=== PATIENT | male | born 1965 | race Caucasian/White ===

== ENCOUNTER 2016-07-01 18:59 | Inpatient (IN) ==
[2016-07-01] MEDS ORDERED: CORDARONE IV ONE (19:00)
[2016-07-01] MEDS ORDERED: CORDARONE 360 MG/D5W 200 ML IV ONE (19:01)
--- NOTE | 2016-07-01 19:04 | PROVIDER DOCUMENTATION ---
HPI-Cardiac General - General Stated Complaint: DEFIB FIRING Time Seen by Provider: 07/01/16 18:59 Source: patient, EMS Allergies/Adverse Reactions: Patient Allergies Allergy/AdvReac Type Severity Reaction Status Date / Time No Known Allergies Allergy Verified 07/01/16 19:33 Home Medications: Clopidogrel Bisulfate [Plavix] 75 mg PO DAILY 01/09/14 Digoxin 0.25 mg PO DAILY 01/09/14 Duloxetine [Cymbalta] 60 mg PO DAILY 01/09/14 Furosemide [Lasix] 40 mg PO DAILY 01/09/14 Lansoprazole [Prevacid] 30 mg PO DAILY 01/09/14 Lisinopril 5 mg PO DAILY 01/09/14 Metoprolol Succinate E.r. [Toprol Xl] 50 mg PO DAILY 01/09/14 Potassium Chloride [Klor-Con M20] 20 meq PO DAILY 01/09/14 Ranolazine [Ranexa] 1,000 mg PO DAILY 01/09/14 Rosuvastatin Calcium [Crestor] 40 mg PO DAILY 01/09/14 Spironolactone 25 mg PO DAILY 01/09/14 Aspirin 81 mg PO DAILY 11/28/14 Hydrocodone/Acetaminophen [False Pass 5-325 Tablet] 1 each PO TID 11/28/14 - History of Present Illness-Cardiac Nature of Presenting Problem: 50 y/o m presents to the ed with pacemaker/defib firing. per pt his defib shocked him X 4 before EMS arrived. pt states it was appx 6:00 pm tonight when he became dizzy and he knew the defib was fixing to fire. pt states it has been X 1 year since his last shock. pt has a hx of V-tach. per EMS while enroute the defib shocked him X 8. upon arrival pt denies any chest pain/sob. Location: reports: central Quality of Pain: reports: dull Severity in ED: moderate Onset/Duration: 1-3 hours ago Timing: still present History of arrythmia: reports: VT Nitro Today/Relief: reports: no nitro taken today Aspirin Treatment Today: reports: 81 mg x 1 Similar Symptoms Previously?: No Recently Seen Here or By Another Healthcare Provider: No Review of Systems - Adult - REVIEW OF SYSTEMS - ADULT Constitutional: denies: chills, fever Cardiovascular: denies: chest pain, palpitations Gastrointestinal: denies: abdominal pain, nausea Past History - Adult - PAST MEDICAL HISTORY-ADULT Review of Records: reports: Old Records Reviewed, Nursing Assessment Review, Medications Reviewed Cardiovascular: reports: CAD, HTN, hyperlipidemia, pacemaker, other ( defibrilator) Respiratory: reports: COPD - PRIOR SURGERIES/PROCEDURES Surgical/Procedure History: reports: CABG, cardiac stent, pacemaker, other ( defbrilator) - IMMUNIZATION STATUS Childhood Immunizations: See Nurse Assessment Flu Vaccine: See Nurse Assessment - FAMILY HISTORY Family History: reviewed, not pertinent - SOCIAL HISTORY Smoking: cigarettes, less than 1 pack/day Provider spent 3-5 mins advising pt. on dangers of tobacco.: Discussed manners to quit use, and f/u contacts for add'l counseling. Substance Use: none/never Alcohol Use Frequency: never Physical Exam-General - PHYSICAL EXAM-ADULT Initial Vital Signs Reviewed: Yes - CONSTITUTIONAL General Appearance: alert - EYES Eyes: PERRL/EOMI, pink conjunctivae, fundi clear, no AV nicking - HEAD, EARS, NOSE, MOUTH & THROAT HENMT: normocephalic/atraumatic, moist mucous membranes, normal ENT inspection - NECK Neck: non-tender, full range of motion, supple - RESPIRATORY Respiratory: chest non-tender, lungs clear, normal breath sounds - CARDIOVASCULAR Cardiovascular: normal peripheral pulses, regular rate, rhythm - GASTROINTESTINAL (ABDOMEN) Abdominal Exam: normal bowel sounds, non tender, soft - MUSCULOSKELETAL Back Exam: normal inspection - SKIN Integumentary: normal color, normal turgor, warm/dry - PSYCHIATRIC Psych/Mental Status: normal mood/affect, normal thought content, normal thought process, oriented x 3 Progress - PLAN OF CARE/RESULTS Progress/Plan/Lab Results: plan of care: labs, imaging,cardiac monitoring, admit as inpatient Laboratory Tests 07/01/16 07/01/16 07/01/16 19:00 19:00 19:00 WBC 9.59 RBC 4.72 Hgb 13.8 L Hct 43.0 MCV 91.1 MCH 29.2 MCHC 32.1 L RDW Std Deviation 15.2 H Plt Count 226 MPV 11.8 H Immature Gran % (Auto) 0.2 Neut % (Auto) 57.9 Lymph % (Auto) 30.1 Maury % (Auto) 9.4 H Eos % (Auto) 1.9 Baso % (Auto) 0.5 Immature Gran # (Auto) 0.02 Neut # (Auto) 5.55 Lymph # (Auto) 2.89 Maury # (Auto) 0.90 H Eos # (Auto) 0.18 Baso # (Auto) 0.05 PT INR PTT (Actin FS) Sodium 140 Potassium 3.7 Chloride 101 Carbon Dioxide 20 L Anion Gap 19 BUN 19 Creatinine 1.1 Estimated GFR/1.73 m2 > 60 BUN/Creatinine Ratio 17 Glucose 104 Calculated Osmolality 282 Calcium 9.2 Magnesium 1.9 Total Bilirubin 0.15 L AST 26 ALT 9 L Alkaline Phosphatase 78 Creatine Kinase 70 Troponin T Fmm-H-Kxorzzrfbav Pept 823 H Total Protein 7.0 Albumin 4.4 Globulin 2.6 Albumin/Globulin Ratio 1.7 07/01/16 07/01/16 19:00 19:00 WBC RBC Hgb Hct MCV MCH MCHC RDW Std Deviation Plt Count MPV Immature Gran % (Auto) Neut % (Auto) Lymph % (Auto) Maury % (Auto) Eos % (Auto) Baso % (Auto) Immature Gran # (Auto) Neut # (Auto) Lymph # (Auto) Maury # (Auto) Eos # (Auto) Baso # (Auto) PT 10.9 INR 1.03 PTT (Actin FS) 30.1 Sodium Potassium Chloride Carbon Dioxide Anion Gap BUN Creatinine Estimated GFR/1.73 m2 BUN/Creatinine Ratio Glucose Calculated Osmolality Calcium Magnesium Total Bilirubin AST ALT Alkaline Phosphatase Creatine Kinase Troponin T 0.016 Gca-C-Bitardsufaa Pept Total Protein Albumin Globulin Albumin/Globulin Ratio Orders Category Date Time Status Cardiac Monitoring DIRECTED Care 07/01/16 18:58 Active Saline Loc NOW Care 07/01/16 18:58 Active CHEST-PORTABLE [RAD] Stat Exams 07/01/16 20:23 Taken CBC WITH ELECTRONIC DIFF [HEME] Stat Lab 07/01/16 19:00 Completed CK PROFILE [SP CHEM] Stat Lab 07/01/16 19:00 Completed COMPREHENSIVE METABOLIC PANEL [CHEM] Stat Lab 07/01/16 19:00 Completed MAGNESIUM [CHEM] Stat Lab 07/01/16 19:00 Completed PRO B-NATRIURETIC PEPTIDE Stat Lab 07/01/16 19:00 Completed PROTIME WITH INR [COAG] Stat Lab 07/01/16 19:00 Completed PTT [COAG] Stat Lab 07/01/16 19:00 Completed TROPONIN T Stat Lab 07/01/16 19:00 Completed Amiodarone 360 mg/D5w [Cordarone 360 mg/D5w] 200 ml Med 07/01/16 19:01 Active IV ONCE Amiodarone [Cordarone] Med 07/01/16 19:00 Discontinued 300 mg IV NOW ONE EKG [EKG] Stat Ther 07/01/16 18:58 Ordered Transfer/Admit Order [TRANSFER] Routine Transfer 07/01/16 21:09 Ordered Vital Signs - 24 hr 07/01/16 07/01/16 07/01/16 19:11 19:32 19:40 Temperature 97.6 F Pulse Rate 93 H 81 Respiratory 20 22 Rate Blood Pressure 151/75 139/78 O2 Sat by Pulse 96 98 Oximetry 07/01/16 07/01/16 20:29 21:08 Temperature Pulse Rate 94 H 91 H Respiratory 22 22 Rate Blood Pressure 112/47 122/58 O2 Sat by Pulse 96 91 L Oximetry - REASSESSMENT Reassessment #1 Time Reassessed: 20:55 Status: improving Reassessment Comment: defib is workng fine - EKG 1 Time of EKG reading by physician:: 19:35 EKG Read and Signed by:: Ras Nichols Rate: 66 Rhythm: pacemaker rhythm - XRAY 1 XRAY Study: Chest XRAY Interpretation: cardiomegaly - CONSULTS/PCP/HOSPITALIST Notification #1 *Consult/PCP/Hospitalist*: Dr. Suarez Time Discussed: 20:54 Consult Disposition: Will see in ED, Admit Departure - Departure Time of Disposition Order: 21:20 DIAGNOSIS: Ventricular tachycardia Disposition: ADMITTED INPATIENT 09 Certified Medical Emergency: Emergent Condition: Stable Referrals: Daphne Herrmann MD [Primary Care Provider] - Attestation - Scribe Verification/Attestation Scribe:: Annel Manzano Acting as Scribe for:: Ras Nichols Scribanu documention review:: This chart was documented by a scribe and accurately reflects the service the provider performed and the decisions made by the provider.
[2016-07-01 19:09] LABS: MANUAL DIFF NEEDED? NO
[2016-07-01 19:12] LABS: BASO% 0.5 % (0.0-0.8); EOS# 0.18 X1000 (0.0-0.7); EOS% 1.9 % (0.0-10.0); HEMOGLOBIN 13.8 g/dL (14.0-18.0); IMM GRAN# 0.02 X1000 (0.0-0.04); IMM GRAN% 0.2 % (0.0-0.5); LYMPH# 2.89 X1000 (1.2-3.4); LYMPH% 30.1 % (20.5-51.1); MCH 29.2 PG (27-31); MCHC 32.1 g/dL (33-37); MCV 91.1 FL (81-99); MONO% 9.4 % (1.7-9.3); MPV 11.8 FL (7.4-10.4); NEUT% 57.9 % (42.2-75.2); PLT 226 X1000 (130-400); RBC 4.72 XMIL (4.7-6.1)
[2016-07-01 19:25] LABS: INR 1.03; PROTIME 10.9 Seconds (9.2-11.7); PTT 30.1 Seconds (22.0-36.0)
[2016-07-01 20:18] LABS: AGAP 19; ALBUMIN 4.4 g/dL (3.5-5.0); ALKALINE PHOSPHATASE 78 U/L (32-122); BUN 19 mg/dL (8-22); CALCIUM 9.2 mg/dL (8.8-10.2); CHLORIDE 101 mmol/L (98-107); CK PROFILE 70 U/L (24-204); COSMO 282; GOT 26 U/L (10-34); GPT 9 U/L (10-44); MAGNESIUM 1.9 mg/dL (1.5-2.7); POTASSIUM 3.7 mmol/L (3.5-5.1); SODIUM 140 mmol/L (136-145); TCO2 20 mmol/L (25-35); TOTAL BILIRUBIN 0.15 mg/dL (0.20-1.00)
[2016-07-01] MEDS ORDERED: ATIVAN IM ONE (21:21)
--- NOTE | 2016-07-01 22:28 | HISTORY AND PHYSICAL ---
REASON FOR ADMISSION: Chest pain followed by multiple ICD firings. PRIMARY CARE PHYSICIAN: Daphne Herrmann M.D. HISTORY OF PRESENT ILLNESS: Mr. Luis Miguel Pierre is a 49-year-old, man with a past medical history of coronary artery disease and chronic systolic heart failure, EF about 20%, dilated ischemic cardiomyopathy, hypertension, hyperlipidemia, tobacco dependent COPD. He comes in today complaining of chest tightness and about 10-15 minutes later having an episode of lightheadedness and shortly afterwards his AICD fired a total of 11-12 times. EMS was called. In between these firings, they noted that he was in ventricular tachycardia during these episodes. The patient was brought to the ER and started on an amiodarone drip, and so far he has not had any recurrent ventricular tachycardia or AICD firings. The defibrillator sales representative livestock did come by and interrogated the defibrillator and noted that the patient had 28 episodes of ventricular tachycardia altogether since yesterday, and his defibrillator fired 11 times. He also documented that the defibrillator was firing appropriately. Patient's only complaint now is a sense of anxiety and apprehension that his defibrillator will fire again. He denies any antecedent PND or orthopnea with this. He did admit to having some slight shortness of breath and some mild diaphoresis prior to the firing of the defibrillator. Otherwise he denies any additional cardiorespiratory complaints. No GI or complaints. REVIEW OF SYSTEMS: Twelve system review is negative. Positive findings per HPI. ALLERGIES: No known allergies. MEDICATION: A current list is not available but his last list on record was about 2 years ago. The patient was taking Aldactone, Crestor, Ranexa, Klor-Con, Toprol, lisinopril, Prevacid, Lasix, Cymbalta, digoxin and Plavix. PAST MEDICAL HISTORY: The patient has documented obstructive sleep apnea but unable to tolerate CPAP due to his extensive sinus disease. 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 2 bypass surgeries. Sinus surgery. SOCIAL HISTORY: He smokes half pack a day, he plans to quit. No alcohol or drug use. He is . He has 3 kids. He is on disability. FAMILY HISTORY: Notable for coronary artery disease in siblings. Dad had emphysema. No family member with diabetes. LABORATORY: X-ray shows cardiomegaly with defibrillator in the left pectoral area. No increased vascular markings. EKG shows a paced rhythm. White count 20,000, hemoglobin and hematocrit , platelets 226,000, BUN 19, creatinine 1.1. Troponin 0.016, proBNP 823, PTT is normal. PHYSICAL EXAMINATION: VITAL SIGNS: Blood pressure 122/50, heart rate 91, respirations 22. He is 91% on room air. GENERAL: He is a middle-aged, small, lean man who is alert and oriented to person, place, time with normal mood and affect. HEENT: Head is normocephalic, atraumatic. Eyes: PERRLA. EOMI. He is anicteric not pale. ENT examination is grossly normal. NECK: Supple. No JVD or carotid bruit. No thyromegaly. CHEST: Significant decreased entry in both lung basilio. CARDIOVASCULAR: First and sounds heard. No gallops, murmurs, rubs. He has occasional skipped beats. ABDOMEN: Full, soft, nontender. No mass. Bowel sounds are normal. No bruit. RECTAL EXAMINATION: Deferred at this time. EXTREMITIES: Patient has significant deformities of both feet. There appears to be few vestigial toes on both feet secondary to his equinovarus deformity and prior surgery. Pulses distally intact. No clubbing or cyanosis. NEUROLOGIC: No focal deficits. SKIN: Intact. No breakdown or lesions. MUSCULOSKELETAL: Grossly normal except for significant atrophy of the musculature of the lower extremities. ASSESSMENT: 1. Ventricular tachycardia with subsequent AICD firing. 2. Coronary artery disease. 3. Chronic systolic heart failure secondary to ischemic cardiomyopathy, 4. Hyperlipidemia. 5. Hypertension. 6. Chronic obstructive pulmonary disease. 7. Obstructive sleep apnea. 8. Tobacco use. PLAN: 1. Based on the patient's old records we will discontinue or decrease the dose of any medication that may increase his risk of having QT prolongation or subsequent ventricular tachycardia. This will include Cymbalta, Ranexa, and possibly digoxin. We will check digoxin level and modify dose accordingly. Also Cardiology to see patient and get echocardiogram in the a.m. Continue amiodarone drip and then probably transition to p.o. amiodarone and/or increased dose of Toprol. 2. Smoking cessation was reiterated. Patient is willing to quit smoking. 3. Unfortunately patient cannot tolerate CPAP and people with sleep apnea are at increased risk of malignant rhythms when the become hypoxemic especially in the face of COPD. I recommend that he follow up with a sleep specialist who can figure a way how to address his problems.
[2016-07-01] MEDS ORDERED: NITROGLYCERIN TOP ONE (23:42)
[2016-07-01] MEDS ORDERED: LOVENOX SUBQ SCH (23:42)
[2016-07-01] MEDS ORDERED: VENTOLIN HFA INH PRN (23:42)
[2016-07-01] MEDS ORDERED: ZOFRAN IV PRN (23:42)
[2016-07-01] MEDS ORDERED: TYLENOL PO PRN (23:42)
[2016-07-02] MEDS: ATIVAN PO PRN ×3 (00:42→15:21)
[2016-07-02] MEDS ORDERED: CORDARONE 540 MG in D5W 289.2 ML IV ONE ×4 (01:00)
[2016-07-02 01:02] LABS: AGAP 18; BUN 17 mg/dL (8-22); CALCIUM 8.5 mg/dL (8.8-10.2); CHLORIDE 111 mmol/L (98-107); COSMO 292; POTASSIUM 4.2 mmol/L (3.5-5.1); SODIUM 146 mmol/L (136-145); TCO2 17 mmol/L (25-35)
[2016-07-02] MEDS ORDERED: PNEUMOVAX 23 IM ONE (02:00)
--- NOTE | 2016-07-02 05:27 | EKG Report ---
Test Performed on : 07/01/2016 7:28:36 PM Test Reason : Chest Pain Blood Pressure : / mmHG Vent. Rate : 066 BPM Atrial Rate : 066 BPM P-R Int : 140 ms QRS Dur : 134 ms QT Int : 442 ms P-R-T Axes : 054 -30 166 degrees QTc Int : 463 ms Normal sinus rhythm. Possible Left atrial enlargement Left axis deviation Nonspecific intraventricular block Cannot rule out Anterior infarct , age undetermined T wave abnormality, consider inferolateral ischemia Abnormal ECG When compared with ECG of 28-NOV-2014 13:38, fusion complexes are no longer present Minimal criteria for Anterior infarct are now present T wave inversion now evident in Lateral leads Unconfirmed Result
[2016-07-02] MEDS ORDERED: PRILOSEC PO SCH (07:00)
--- NOTE | 2016-07-02 08:03 | Diag Imaging Result Document ---
PROCEDURE NAME: CHEST-PORTABLE - 07/01/2016 AP PORTABLE CHEST: TIME: 2040 hours. FINDINGS: The lungs are clear. There is a pacemaker on the left and there are sternotomy wires and anterior mediastinal surgical clips. Considering differences in technique there has been no significant change since 11/28/2014. IMPRESSION: Stable chest.
[2016-07-02] MEDS: NORCO-5 PO SCH ×4 (08:16→16:45)
[2016-07-02] MEDS ORDERED: PLAVIX PO SCH (09:00)
[2016-07-02] MEDS ORDERED: PRINIVIL PO SCH (09:00)
[2016-07-02] MEDS ORDERED: CRESTOR PO SCH (09:00)
[2016-07-02] MEDS ORDERED: ALDACTONE PO SCH (09:00)
[2016-07-02] MEDS ORDERED: LASIX PO SCH (09:00)
[2016-07-02] MEDS ORDERED: KLOR-CON PO SCH (09:00)
[2016-07-02] MEDS ORDERED: ASPIRIN PO SCH ×2 (09:00)
[2016-07-02] MEDS ORDERED: RANEXA PO SCH ×2 (09:00→21:00)
[2016-07-02] MEDS ORDERED: NON-FORMULARY MED (Lansoprazole [Prevacid] 30 MG) PO SCH (09:00)
[2016-07-02] MEDS ORDERED: TOPROL XL PO SCH (09:00)
--- NOTE | 2016-07-02 11:57 | PROGRESS NOTE ---
DATE: 07/02/2016 SUBJECTIVE: The patient denies any chest pain, any sensation of palpitation until nursing staff reported he had another episode of ventricular tachycardia last night. He reports having not noticed anything. OBJECTIVE: Vital Signs: Temperature 98.0 degrees, heart rate 75, respiratory rate 15, blood pressure 120/62 and O2 saturation 95% on room air. General Examination: This is a 49-year-old, male, lying in bed in no acute distress. HEENT: Head is normocephalic, atraumatic. Anicteric sclerae and pale conjunctivae. Mucous membranes moist. Neck: Supple. No JVD noted. No carotid bruits. No lymphadenopathy. No thyromegaly. Cardiovascular exam: S1 and S2 heard. No murmurs, gallops, or rubs. Regular rate and rhythm. Respiratory: Clear bilaterally to auscultation with decreased breath sounds globally. No wheezing. Not using any accessory muscles or having work of breathing. Abdomen: Soft, nontender to palpation. Bowel sounds present. No organomegaly. Extremities: Significant deformities on both feet. That seems to be secondary to equinovarus deformity on prior surgery. Peripheral pulses present in both legs. Neurological examination: Patient is alert and oriented x3. Able to move 4 extremities. Cranial nerves 2-12 grossly normal. LABORATORY DATA: White cell count 9.59, hemoglobin 13.8, hematocrit 43.0, platelets 226. Sodium 142, potassium 4.2, chloride 111, creatinine 0.9. ASSESSMENT AND PLAN: 1. Ventricular tachycardia with subsequent automatic implantable cardioverter defibrillator firing. 2. Coronary artery disease. 3. Severe ischemic cardiomyopathy with ejection fraction of 20%. 4. Hyperlipidemia. 5. Hypertension. 6. Chronic obstructive pulmonary disease. 7. Obstructive sleep apnea. 8. Alcohol abuse. PLAN: With this patient, we are awaiting cardiology evaluation for this episode of ventricular tachycardia when AICD firing. Currently this patient is on amiodarone drip. We will continue with the same treatment. Since admission, the patient is not complaining of any chest pain at all. For ischemic cardiomyopathy, we will basically continue with the same management. For COPD, we will continue with the inhalers and for obstructive sleep apnea, we have talked with this patient about the risk of not treating sleep apnea because that will definitely make his myocardium receiving less oxygen and make him prone to develop more arrhythmias. Patient acknowledged understanding. For tobacco abuse, patient has been consulted about stopping smoking. Further recommendations to follow according to the clinical situation of the patient.
[2016-07-02] MEDS ORDERED: CORDARONE 150 MG/D5W 100 ML ONE (14:18)
[2016-07-02] MEDS ORDERED: CORDARONE 150 MG/D5W 100 ML IV ONE (14:22)
[2016-07-02 15:11] VITALS: BP 128/69
--- NOTE | 2016-07-02 15:50 | ECHO REPORT ---
ORDER DATE: 07/01/2016 ECHOCARDIOGRAPHIC MEASUREMENTS: 1. Interventricular septum 0.8, left ventricular posterior wall 0.8, diastolic diameter 6.8, left atrium 4.5, aorta 3.5. 2. Dilated left ventricle with severely reduced systolic function. There is estimated ejection fraction of 20-25%. There is anteroseptal akinesis with apical dyskinesia. 3. Ventricular tachycardia was noted during echocardiogram. 4. Aortic valve leaflets are trileaflet. Mitral valve was normal. Tricuspid valve was normal. 5. There was mild pulmonary regurgitation. There was mild tricuspid regurgitation. Peak velocity across the tricuspid valve was 2.2 m/sec. There was a trace to mild mitral regurgitation. 6. There is no aortic stenosis or regurgitation. 7. Pacing leads noted in the right chamber. 8. There is no pericardial effusion or obvious intracardiac mass or thrombus.
[2016-07-02] MEDS ORDERED: CORDARONE 360 MG/D5W 200 ML IV SCH (16:00)
--- NOTE | 2016-07-02 17:01 | CONSULTATION ---
DATE OF CONSULTATION: 07/02/2016 INDICATION: VT storm. HISTORY OF PRESENT ILLNESS: Mr. Pierre is a 50-year-old, white male with a history of ischemic cardiomyopathy and ventricular tachycardia with biventricular ICD in place. He was in his usual state of health yesterday around 5 or 6 p.m. He was in a seated position and had a brief episode of dizziness and then had the onset of device shocks. He called EMS and per device interrogation, he had a total of 11 shocks delivered over a short period of time. These were successful at converting him out of a ventricular tachycardia, but he had many recurrences. He had a total of 28 episodes with the other being ATP pace terminated. He does not think he has had any episodes of chest discomfort recently, and his shortness of breath has not been out of the ordinary. He has had no recent orthopnea. No weight gain. He has been compliant with his medications. No other issues noted. PAST MEDICAL HISTORY: 1. Significant for ischemic cardiomyopathy. His last ejection fraction was 35-40% by an echo almost 2 years ago. His last heart catheterization was in what appears to be September 2012, at which time he had an occluded RAMON to LAD, vein graft to OM. Had a severe ostial lesion and a vein graft to the right coronary had a severe ostial lesion. There was an attempt at PCI to the LAD, which resulted in a jailed bifurcating diagonal and then subsequently in November 2012, he had a redo bypass with a vein graft to the OM1 and a vein graft to PDA. 2. History of myocardial infarction in 2002. This was an anterior myocardial infarction. 3. History of AICD implantation. In 2013, this was upgraded to a biventricular device. 4. History of ventricular tachycardia in June 2014. 5. COPD. 6. Hypertension. 7. Hyperlipidemia. 8. Diabetes mellitus. 9. Carotid artery disease. 10. Reflux. 11. Sleep apnea. SOCIAL HISTORY: Smokes a half pack a day. No alcohol or drug use. . Currently on disability. FAMILY HISTORY: Significant for coronary artery disease in siblings. Father had emphysema. REVIEW OF SYSTEMS: A 10 system review of systems is unremarkable except for those things mentioned in HPI. PHYSICAL EXAMINATION: Vital Signs: More recently, the patient has been afebrile. Heart rates at 60 and paced. Systolic blood pressures 100s to 120s. Overnight, these are relatively consistent with those findings. Generally: He is in no acute distress. Pleasant. HEENT: Oropharynx is moist. Normal dentition. Eye examination shows pink conjunctivae. White sclerae. Neck: Examination shows no obvious thyromegaly or thyroid tenderness. Cardiovascular: He sounds to be in a regular rate and rhythm. He has no obvious murmurs present. There is no S3. He has no lower extremity edema. He has warm and well perfused lower extremities. Chest: Exam is clear bilaterally. He has no increased work of breathing. Abdomen: Soft, nontender, nondistended. He has no obvious organomegaly. Skin Exam: Warm and dry throughout without any rashes. Neurological: He is moving all extremities well. Cranial nerves 2-12 are intact without any sensation deficits. Psychiatric: Alert and oriented, pleasant. He has normal mood and affect. PERTINENT DATA: His EKG yesterday at 1928 shows atrial sensed ventricular paced. His chest x-ray shows no acute abnormalities. He had an echo performed in June 2014 showing an EF of 35-40%. He had evidence of extensive anterior apical infarct. Review of his echo today continues to show evidence of a significant anterior apical infarct as well as an EF that appears to be in the 30- 35% range. His white count yesterday was 9.6, hematocrit 43, platelet count 226. His INR is 1.0. His sodium is 146, potassium 4.2, his BUN is 17, creatinine 0.9. His cardiac enzymes initially were 0.016. Since that time, they trended up to 0.174 and down to 0.146. His LDL cholesterol is 59. HDL was 41. His dig level was 0.2, which is low. ProBNP was 823. ASSESSMENT: 1. Ventricular tachycardia storm. 2. History of ischemic cardiomyopathy. PLAN: His electrolytes appear reasonable, and his magnesium was above 2. I will increase his Ranexa back up to 500 mg b.i.d. Continue him on metoprolol for now. His sotalol was stopped, and he is currently on amiodarone infusion. At this point, I would likely recommend transfer to [facility]. Considering his current arrhythmogenic issues. He certainly will need some sort of an ischemia evaluation. If this is uneventful, then he may need a ventricular tachycardia ablation performed. His vital signs appear stable. He has not had any device shocks overnight. The amiodarone appears to be effective at this point.
--- NOTE | 2016-07-05 23:06 | DISCHARGE SUMMARY ---
ADMISSION DATE: 07/01/2016 DISCHARGE DATE: 07/02/2016 DISCHARGE DIAGNOSES: 1. Chest pain. 2. Ventricular tachycardia with subsequent AICD firing. 3. Coronary artery disease. 4. Chronic systolic heart failure, secondary to ischemic cardiomyopathy. 5. Hyperlipidemia. 6. Hypertension. 7. COPD. 8. Obstructive sleep apnea. CONSULTATIONS: Dr. Yeison Mancilla, from Cardiology. PROCEDURES: Echocardiogram showed an ejection fraction of 20 to 25% with anteroseptal akinesis. No aortic stenosis was reported. No pericardial effusion. HOSPITAL COURSE: This is a 50-year-old male, with a past medical history of coronary artery disease, and chronic systolic heart failure with ejection fraction of 20 to 25% secondary to ischemic dilated cardiomyopathy, hypertension, hyperlipidemia, tobacco dependent, tobacco abuse, COPD. He came to the hospital today complaining of chest tightness that lasts approximately 10 to 15 minutes. Then he noticed an episode of lightheadedness, and shortly afterwards his ICD fired 11 to 12 times. The patient was admitted to the hospital. Patient was evaluated by Yeison Mancilla. Electrocardiogram shows findings as above. This night, also this patient has another episode of ventricular tachycardia with ICD firing that happened again in the morning, on 07/02. At this time, the patient was re-evaluated by Cardiology, and it was felt that this patient needed electrophysiology evaluation because even this patient on amiodarone drip, he was still having these episodes of ventricular tachycardia, and the implantable cardioverter defibrillator was firing again. DISPOSITION: Patient was finally transferred to [facility] in stable condition.
== END 2016-07-02 17:03 | disposition short-term general hospital (02) | DRG 309 ==
LOC: EDBD → ED 18:59 → ICU 22:53
PROVIDERS: ADMIT Internal Medicine; ATTEND Internal Medicine
PROC: 4B02XTZ Measurement of Cardiac Defibrillator, External Approach (ICD-10-PCS; principal; 2016-07-01)
DX: I47.2 Ventricular tachycardia (principal); I50.22 Chronic systolic (congestive) heart failure; I25.810 Atherosclerosis of coronary artery bypass graft(s) without angina pectoris; Z95.810 Presence of automatic (implantable) cardiac defibrillator; I25.5 Ischemic cardiomyopathy; E78.5 Hyperlipidemia, unspecified; I10 Essential (primary) hypertension; J44.9 Chronic obstructive pulmonary disease, unspecified; G47.33 Obstructive sleep apnea (adult) (pediatric); F17.210 Nicotine dependence, cigarettes, uncomplicated; I25.10 Atherosclerotic heart disease of native coronary artery without angina pectoris; F41.9 Anxiety disorder, unspecified; M21.6X2 Other acquired deformities of left foot; M21.6X1 Other acquired deformities of right foot; E11.9 Type 2 diabetes mellitus without complications; K21.9 Gastro-esophageal reflux disease without esophagitis; I77.9 Disorder of arteries and arterioles, unspecified; Z82.49 Family history of ischemic heart disease and other diseases of the circulatory system; Z79.02 Long term (current) use of antithrombotics/antiplatelets; Z79.82 Long term (current) use of aspirin; Z79.899 Other long term (current) drug therapy; Z79.891 Long term (current) use of opiate analgesic; Z95.5 Presence of coronary angioplasty implant and graft; I25.2 Old myocardial infarction
CPT/HCPCS: 71010; 80048; 80053; 80061; 80162; 82550; 83721; 83735; 83880; 84484; 85025; 85610; 85730; 93005; 93306; 96365; 96366; 96372; 96375; J0282; J1650; J2060; J7060

== ENCOUNTER 2019-07-23 01:43 | Inpatient (IN) ==
[2019-07-23] MEDS ORDERED: CORDARONE IV ONE (01:51)
--- NOTE | 2019-07-23 02:11 | PROVIDER DOCUMENTATION ---
HPI-General Adult - General Stated Complaint: chest pain Time Seen by Provider: 07/23/19 01:47 Source: patient Allergies/Adverse Reactions: Patient Allergies Allergy/AdvReac Type Severity Reaction Status Date / Time No Known Allergies Allergy Verified 06/26/19 13:27 Home Medications: Home Medication List Medication Instructions Recorded Confirmed Last Taken Type Duloxetine [Cymbalta] 60 mg PO DAILY 01/09/14 07/23/19 06/26/19 History Furosemide [Lasix] 40 mg PO DAILY 01/09/14 07/23/19 06/26/19 History Metoprolol Succinate E.r. [Toprol 50 mg PO DAILY 01/09/14 07/23/19 06/26/19 History Xl] Potassium Chloride [Klor-Con M20] 20 meq PO DAILY 01/09/14 07/23/19 06/26/19 History Ranolazine [Ranexa] 1,000 mg PO BID 01/09/14 07/23/19 06/26/19 History Rosuvastatin Calcium [Crestor] 40 mg PO DAILY 01/09/14 07/23/19 06/25/19 History Aspirin 81 mg PO DAILY 11/28/14 07/23/19 11/28/14 08:00 History Amiodarone [Cordarone] 1 tab PO DAILY 06/26/19 07/23/19 Unknown History Amlodipine Besylate [Norvasc] 1 tab PO DAILY 06/26/19 07/23/19 06/26/19 History Aspirin 1 tab PO PRN PRN 06/26/19 07/23/19 06/26/19 History Clonazepam 1 tab PO DAILY 06/26/19 07/23/19 06/26/19 History Clopidogrel [Plavix] 1 tab PO DAILY 06/26/19 07/23/19 06/26/19 History Mirtazapine [Remeron] 1 tab PO QHS 06/26/19 07/23/19 06/25/19 History - History of Present Illness -Gen Adult Nature of Presenting Problems: 53 y/o M presents to the ED with EMS complaining of chest pain. States he began to have pressure like pain in his substernal chest radiating to his left arm at about midnight and states this has persisted since. with this has had slight dyspnea but no nausea or diaphoresis. Has extensive cardiac history with multi- vessel bypass and pacemaker. Took 324mg asa and 4 NTG at home prior to calling 911. Review of Systems - Adult - REVIEW OF SYSTEMS - ADULT Constitutional: reports: no symptoms reported Eyes: reports: no symptoms reported Ears, Nose, Mouth & Throat: reports: no symptoms reported Cardiovascular: reports: chest pain Respiratory: reports: shortness of breath Gastrointestinal: reports: no symptoms reported Genitourinary: reports: no symptoms reported Musculoskeletal: reports: no symptoms reported Integumentary: reports: no symptoms reported Neurological: reports: no symptoms reported Psychiatric: reports: no symptoms reported Endocrine: reports: no symptoms reported Hematologic/Lymphatic: reports: no symptoms reported Allergic/Immunologic: reports: no symptoms reported All Other Systems: Reviewed and Negative Past History - Adult - PAST MEDICAL HISTORY-ADULT Review of Records: reports: Old Records Reviewed, Nursing Assessment Review, Medications Reviewed, Social history reviewed & non-contributory. Major Childhood Illnesses: reports: denies history Cardiovascular: reports: CAD, HTN, hyperlipidemia, pacemaker, other (defibrilator) Respiratory: reports: COPD Gastrointestinal: reports: denies history Obstetrical/Gynecological: reports: denies history Genitourinary: reports: denies history Musculoskeletal: reports: denies history Neurological: reports: denies history Endocrine/Immune: reports: denies history Other Conditions: reports: denies history - PRIOR SURGERIES/PROCEDURES Surgical/Procedure History: reports: CABG, cardiac stent, pacemaker, other (defbrilator) - IMMUNIZATION STATUS Childhood Immunizations: See Nurse Assessment Flu Vaccine: See Nurse Assessment - FAMILY HISTORY Family History: reviewed, not pertinent Physical Exam-General - PHYSICAL EXAM-ADULT Initial Vital Signs Reviewed: Yes - CONSTITUTIONAL General Appearance: appears well, alert, mild distress - EYES Eyes: PERRL/EOMI, pink conjunctivae - HEAD, EARS, NOSE, MOUTH & THROAT HENMT: normocephalic/atraumatic, moist mucous membranes, normal ENT inspection - NECK Neck: non-tender, full range of motion, supple - RESPIRATORY Respiratory: chest non-tender, lungs clear, normal breath sounds - CARDIOVASCULAR Cardiovascular: normal peripheral pulses, no edema, no JVD, tachycardia - GASTROINTESTINAL (ABDOMEN) Abdominal Exam: non tender, soft - MUSCULOSKELETAL Back Exam: normal inspection, no vertebral tenderness Extremity: non-tender, normal gait, no pedal edema - SKIN Integumentary: normal color, normal turgor, warm/dry - NEUROLOGIC Neurologic: grossly normal, no motor/sensory deficits - PSYCHIATRIC Psych/Mental Status: normal mood/affect, normal thought content, normal thought process, oriented x 3 Progress - PLAN OF CARE/RESULTS Progress/Plan/Lab Results: Orders Category Date Time Status IV Insertion ORDERED Care 07/23/19 01:51 Active cxr [CHEST-1 VIEW] [RAD] Stat Exams 07/23/19 01:51 Ordered BASIC METABOLIC PANEL [CHEM] Stat Lab 07/23/19 02:00 Received CBC WITH DIFF [HEME] Stat Lab 07/23/19 02:00 Results TROPONIN T HIGH SENSITIVITY Stat Lab 07/23/19 02:00 Received Amiodarone [Cordarone] Med 07/23/19 01:51 Discontinued 150 mg IV NOW ONE EKG [EKG] Stat Ther 07/23/19 01:44 Ordered chest pain, EKG concerning for V-tach vs Afib with aberrancy but more consistent with v-tach. Awake and alert with stable BP. Will treat with amiodarone and will closely observe Result Diagrams: 07/23/19 02:00 07/23/19 02:00 - REASSESSMENT Reassessment #1 Status: unchanged (continued chest pain, discussed case wtih Dr. Hendrix, bark skinner contact agent, who feels that pt likely has slow v-tach due to his Beta yudi and that will likley need cardioversion if he does not convert with amiodarone. Feels that this AICD did not fire as the rate is too slow for it to recongnize this as v-tach. Will finish amiodarone infusion and if without changes will plan cardioversion.) Reassessment #2 Status: unchanged (continued v-tach. Cardioverted at 100J after sedation with etomidate with conversion to paced sinus rhythm. Awoke without incident and reports full resolution of chest pain. will continue to observe) Reassessment #3 Status: improving (feeling well, chest pain resolved. Mildly elevated troponin likley due to VT. Will admit for further evaluation and treatment. Discussed case with Dr. Read, hospitalist, who will see and admit pt.) - EKG 1 Time of EKG reading by physician:: 01:47 EKG Read and Signed by:: Leila Ayoub EKG Interpretation (*Must complete 3 of following elements*): Abnormal (ventricular tachycardia vs afib with abarency, rate 126,) 2 Time of EKG reading by physician:: 02:57 EKG Read and Signed by:: Leila Ayoub EKG Interpretation (*Must complete 3 of following elements*): Normal (Paced rhythm, rate 60, no acute st changes) Departure - Departure Date of Disposition Decision: 07/23/19 Time of Disposition Decision: 03:33 DIAGNOSIS: Ventricular tachycardia Disposition: ADMITTED INPATIENT 09 Certified Medical Emergency: Emergent Condition: Good - Critical Care Note This patient required my direct & personal management of CC.: Yes Total Time (mins): 60 Critical Care Statement: This patient required my direct personal management to treat or rule out processes, the absence of which, could potentiallly result in sudden, clinically significant life or limb threatening deterioration. Attestation - Physician/ ROSIE Attestation Patient care was provided by Advanced Practice Provider:: No The physician spent face to face time with patient:: Yes Advanced Practice Provider documentation review:: Supervising physician onsite and consulted in the evaluation and care of this patient. The physician did have a face to face encounter with the patient.
--- NOTE | 2019-07-23 02:13 | EKG Report ---
Test Performed on : 07/23/2019 01:47:25 AM Test Reason : CP Blood Pressure : / mmHG Vent. Rate : 126 BPM Atrial Rate : 126 BPM P-R Int : 084 ms QRS Dur : 202 ms QT Int : 360 ms P-R-T Axes : 106 180 -83 degrees QTc Int : 521 ms Suspect arm lead reversal, interpretation assumes no reversal Sinus tachycardia. with short OR Nonspecific intraventricular block Lateral infarct , age undetermined Abnormal ECG When compared with ECG of 26-JUN-2019 11:39, (Unconfirmed) Sinus rhythm. has replaced Electronic ventricular pacemaker Vent. rate has increased BY 59 BPM Unconfirmed Result
[2019-07-23 02:25] LABS: CHLORIDE 98 mmol/L (98-107); POTASSIUM 3.4 mmol/L (3.5-5.1); SODIUM 139 mmol/L (136-145)
[2019-07-23 02:28] LABS: BASO# 0.08 X1000 (0.0-0.2); BASO% 0.5 % (0.0-0.8); EOS# 0.27 X1000 (0.0-0.7); EOS% 1.8 % (0.0-10.0); HEMATOCRIT 44.7 % (42.0-52.0); HEMOGLOBIN 14.2 g/dL (14.0-18.0); IMM GRAN# 0.06 X1000 (0.0-0.04); IMM GRAN% 0.4 % (0.0-0.5); LYMPH# 2.89 X1000 (1.2-3.4); LYMPH% 18.7 % (20.5-51.1); MCH 29.5 PG (27-31); MCHC 31.8 g/dL (33-37); MCV 92.7 FL (81-99); MONO# 1.13 X1000 (0.11-0.59); MONO% 7.3 % (1.7-9.3); MPV 10.4 FL (7.4-10.4); NEUT# 10.99 X1000 (1.4-6.5); NEUT% 71.3 % (42.2-75.2); PLT 325 X1000 (130-400); RBC 4.82 XMIL (4.7-6.1); RDW 14.3 % (11.5-14.5); WBC 15.42 X1000 (4.8-10.8)
[2019-07-23] MEDS ORDERED: AMIDATE ONE (02:41)
[2019-07-23] MEDS ORDERED: NS 0 ML ONE (02:47)
[2019-07-23] MEDS ORDERED: AMIDATE IV ONE (02:50)
[2019-07-23] MEDS ORDERED: NS 1,000 ML IV ONE (02:50)
[2019-07-23 03:04] LABS: BUN 14 mg/dL (8-22); CALCIUM 8.9 mg/dL (8.8-10.2); GLUCOSE 103 mg/dL (70-104); TCO2 25 mmol/L (25-35)
[2019-07-23 03:06] LABS: AGAP 16
[2019-07-23 03:07] LABS: COSMO 278
[2019-07-23 03:28] LABS: CREATININE 1.1 mg/dL (0.7-1.2)
--- NOTE | 2019-07-23 04:10 | EKG Report ---
Test Performed on : 07/23/2019 02:55:36 AM Test Reason : post conversion Blood Pressure : / mmHG Vent. Rate : 060 BPM Atrial Rate : 060 BPM P-R Int : 000 ms QRS Dur : 168 ms QT Int : 502 ms P-R-T Axes : 047 -60 150 degrees QTc Int : 502 ms Ventricular-paced rhythm Abnormal ECG When compared with ECG of 23-JUL-2019 01:47, (Unconfirmed) Electronic ventricular pacemaker has replaced Sinus rhythm. Vent. rate has decreased BY 66 BPM Unconfirmed Result
[2019-07-23] MEDS ORDERED: PRILOSEC PO SCH (07:00)
[2019-07-23] MEDS ORDERED: ASPIRIN PO PRN (07:03)
[2019-07-23] MEDS ORDERED: NS 1,000 ML IV SCH (07:03)
[2019-07-23] MEDS ORDERED: KLOR-CON PO ONE (07:28)
[2019-07-23] MEDS ORDERED: NICODERM PATCH TD PRN (07:29)
[2019-07-23] MEDS ORDERED: DUONEB (A & A) INH PRN (07:30)
[2019-07-23] MEDS ORDERED: NITROGLYCERIN TOP SCH (07:30)
--- NOTE | 2019-07-23 08:01 | HISTORY AND PHYSICAL ---
CHIEF COMPLAINT: Chest pain noted prior to admission. HISTORY OF PRESENT ILLNESS: Mr. Luis Miguel Pierre is a 53-year-old male with a history of coronary artery disease status post CABG, hypertension, hyperlipidemia, congestive heart failure, tobacco use history. He presents to the hospital because of left-sided chest pain which he noted about 1 to 2 hours prior to admission. He describes the pain as dull and radiates to the upper extremity. It is constant. It is made worse with lying down and improved with staying upright. He has had associated shortness of breath. No palpitation or diaphoresis. When the patient presented to the hospital, he was found to be in ventricular tachycardia and he received amiodarone 150 mg IV. The patient was subsequently cardioverted with 100 joules after sedation with etomidate with subsequent conversion to paced sinus rhythm. The patient will now be admitted to the floor for further management. PAST MEDICAL HISTORY: Coronary artery disease, hypertension, hyperlipidemia, chronic systolic congestive heart failure, COPD, obstructive sleep apnea. PAST SURGICAL HISTORY: He has had a CABG, sinus surgery, multiple foot surgeries for abnormalities, also has a defibrillator in place. SOCIAL HISTORY: Smokes cigarettes. No alcohol or drug use. FAMILY HISTORY: Positive for heart disease. ALLERGIES: No known medication allergies. MEDICATIONS: Cymbalta 60 mg p.o. daily, Lasix 40 mg p.o. daily, methocarbamol 50 mg p.o. daily, potassium chloride 20 mEq p.o. daily, Ranexa 1000 mg p.o. twice a day, Crestor 40 mg p.o. daily, aspirin 81 mg p.o. daily, amiodarone 1 tab daily, Norvasc 1 tab daily, aspirin 1 tab daily p.r.n., clonazepam 1 tab daily, Plavix 75 mg per day, mirtazapine 1 tab at bedtime. REVIEW OF SYSTEMS: Constitutional: No fever. RN BSN: No headaches. Eyes: Uses glasses. ENT: No sinus or hearing loss. Cardiovascular: He has chest pain. Respiratory: No cough. GI: No nausea, vomiting, diarrhea. No abdominal pain. : No dysuria. Psychiatric: She has anxiety and depression. Dermatology: No skin lesions. Hematology: No bleeding problems. Endocrinology: No thyroid disease or diabetes. PHYSICAL EXAMINATION: VITAL SIGNS: Temperature is 97.6 degrees with a pulse of 124, respiratory rate is 19, blood pressure is 93/74, oxygen saturation is 97%. HEENT: Atraumatic, normocephalic. He is anicteric. Extraocular movements intact. No oral lesions noted. NECK: No lymphadenopathy or thyromegaly. CARDIOVASCULAR: S1, S2. RESPIRATORY: Has evidence of good entry bilaterally. ABDOMEN: Soft, nontender. No masses felt. EXTREMITIES: No evidence of edema. CENTRAL NERVOUS SYSTEM: No obvious focal deficit noted. LABORATORY DATA: WBC is 15.42, hematocrit 44.7, with a platelet count of 225,000. Sodium is 139, potassium 3.4, chloride 98, bicarb is 25, BUN is 14, creatinine is 1.1. Troponin is 26. ASSESSMENT AND PLAN: 1. Sustained ventricular tachycardia status post amiodarone 150 mg x1 dose status post cardioversion with [address] patient on telemetry. Check serial cardiac enzymes. Continue amiodarone. Consult with Cardiology. 2. Coronary artery disease. Follow up on serial cardiac enzymes. Continue aspirin as well as a beta yudi. Continue Ranexa as well as Crestor. Nitroglycerin p.r.n. for chest pain. 3. Hypertension. Optimize blood pressure control. 4. Hyperlipidemia. Continue lipid-lowering agent. 5. Chronic systolic congestive heart failure. Check I/Os as well as daily weights. Use diuretics as needed. 6. Chronic obstructive pulmonary disease. Nebulized bronchodilators as needed. 7. Tobacco use history. Recommend nicotine patch. 8. Leukocytosis. Etiology not clear. We will obtain cultures and follow up on patient's white count. 9. Deep vein thrombosis prophylaxis. Lovenox. 10. Gastrointestinal prophylaxis. Proton pump inhibitor. cc: Richard Read MD
[2019-07-23 08:05] LABS: CK INDEX 8.1 (0.0-2.5); CK-MB 28.25 ng/mL (0.0-5.0)
--- NOTE | 2019-07-23 08:11 | Diag Imaging Result Doc PS360 ---
EXAM: CHEST-1 VIEW 07/23/2019 HISTORY: chest pain TECHNIQUE: AP portable at 0215 COMMENT: Compared to 06/26/2019 the inspiration is less optimal, there is interstitial pulmonary edema, and the heart size appears larger. IMPRESSION: Pulmonary edema. Electronically signed by Noe Cerna 07/23/2019 8:09 AM
[2019-07-23] MEDS: DUONEB (A & A) INH SCH ×2 (08:34→11:27)
[2019-07-23] MEDS ORDERED: CRESTOR PO SCH (09:00)
[2019-07-23] MEDS ORDERED: LASIX PO SCH (09:00)
[2019-07-23] MEDS ORDERED: RANEXA PO SCH (09:00)
[2019-07-23] MEDS ORDERED: KLONOPIN PO SCH (09:00)
[2019-07-23] MEDS ORDERED: TOPROL XL PO SCH (09:00)
[2019-07-23] MEDS ORDERED: KLOR-CON PO SCH (09:00)
[2019-07-23] MEDS ORDERED: ASPIRIN PO SCH (09:00)
[2019-07-23] MEDS ORDERED: CORDARONE PO SCH (09:00)
[2019-07-23] MEDS ORDERED: PLAVIX PO SCH (09:00)
[2019-07-23] MEDS ORDERED: CYMBALTA PO SCH (09:00)
[2019-07-23 10:49] LABS: CK INDEX 8.6 (0.0-2.5); CK-MB 32.18 ng/mL (0.0-5.0)
[2019-07-23] MEDS ORDERED: LOVENOX SUBQ ONE (11:00)
[2019-07-23] MEDS ORDERED: LOVENOX 1 MG/KG SUBQ SCH (11:00)
--- NOTE | 2019-07-23 12:05 | EKG Report ---
Test Performed on : 07/23/2019 09:41:22 AM Test Reason : VTACH Blood Pressure : / mmHG Vent. Rate : 060 BPM Atrial Rate : 060 BPM P-R Int : 142 ms QRS Dur : 192 ms QT Int : 554 ms P-R-T Axes : 152 -52 146 degrees QTc Int : 554 ms AV dual-paced rhythm Abnormal ECG When compared with ECG of 23-JUL-2019 02:55, (Unconfirmed) No significant change was found Unconfirmed Result
[2019-07-23] MEDS ORDERED: TYLENOL PO PRN (12:08)
[2019-07-23] MEDS ORDERED: MORPHINE IV PRN (12:08)
[2019-07-23 13:30] VITALS: BP 111/64
[2019-07-23] MEDS ORDERED: REMERON PO SCH (21:00)
[2019-07-24] MEDS ORDERED: LOVENOX SUBQ SCH (09:00)
--- NOTE | 2019-08-31 09:58 | DISCHARGE SUMMARY ---
ADMISSION DATE: 07/23/2019 DISCHARGE DATE: 07/23/2019 DISCHARGE DIAGNOSES: 1. Sustained ventricular tachycardia. 2. Coronary artery disease. 3. Hypertension. 4. Hyperlipidemia. 5. Chronic obstructive pulmonary disease. 6. Chronic congestive heart failure. HISTORY AND HOSPITAL COURSE: Briefly, this is a 53-year-old male who came in with chest pain. He got amiodarone. He was found to have ventricular tachycardia. He was cardioverted. He was admitted for treatment. I cannot really tell that Cardiology saw him. He did have ventricular tachycardia and it was adjusted. Unfortunately, I think his troponin became positive. Initially it was negative at 26 but then went up to 883 with positive MB and a positive CK. The patient was transferred to [place], I am assuming, for further management of his non STEMI and ventricular tachycardia. I do not think our team or Cardiology fully evaluated him before transfer, so this note is mostly for completion, that is around 10:30. DISCHARGE DISPOSITION: Patient was transferred to [place] for further management. cc: Milton Lucio MD
== END 2019-07-23 13:29 | disposition short-term general hospital (02) | DRG 281 ==
LOC: SUPCPDRO → ED 01:43 → SUATTDRO 06:44 → EDIPHOLD 06:44 → 2N 10:55 → EDIPHOLD 11:08
PROVIDERS: ATTEND Internal Medicine